=== PATIENT | male | born 1945 | race Caucasian/White ===

== ENCOUNTER 2022-05-28 08:25 | Outpatient (CLI) | payer OTHER, SELFPAY ==
--- NOTE | 2022-05-28 | PETR_ITS ---
PROCEDURE INFORMATION: Exam: PET/CT Skull Base to Mid-thigh Exam date and time: 05/28/2022 9:29 AM Age: 76 years old Clinical indication: Abnormal findings; Abnormal CT scan of lung field LABS AND CLINICAL REPORTS: Glucose: 93 mg/dl Treatment strategy for malignancy (PET staging): Initial Staging (PI) TECHNIQUE: Imaging protocol: Following at least four-hour fasting and following the injection of F-18-FDG, low dose CT images were obtained. Then, PET images were obtained. Attenuation corrected images were constructed using the CT scan. Fused images of PET and CT were reviewed. The standardized uptake values (SUV) reported below are maximum values within a region of interest, expressed in gm/ml. Exam includes orbital meatal line to mid-thigh. Radiopharmaceutical: 14.8 mCi F-18 FDG (Fluorodeoxyglucose), IV. Time of imaging post radiopharmaceutical administration: 57.9 minutes. Injection site: Left hand. COMPARISON: The images and the report of the CT chest which demonstrated the pulmonary abnormality have not been provided. They have been requested. FINDINGS: Brain: Visualized brain has normal physiologic uptake. Pharynx: No abnormal uptake. Larynx: No abnormal uptake. Lungs, pleura and trachea: In the right lower lobe, superior segment, a noncalcified irregular pulmonary nodule is approximately 2.0 x 1.0 x 1.0 cm (series 3, images 56-58). Its SUV max is only 1.7, which is not suspicious for malignancy. At the medial left lung apex, a 0.5 x 0.5 cm noncalcified pulmonary nodule is indeterminate because it is too small to be detectable on PET. Heart: Normal physiologic uptake. Mediastinal space: No abnormal uptake. Liver: No abnormal uptake. Gallbladder and bile ducts: No abnormal uptake. Pancreas: No abnormal uptake. Spleen: No abnormal uptake. Adrenal glands: No abnormal uptake. Kidneys and ureters: Normal physiologic uptake. Stomach and bowel: No abnormal uptake. Vasculature: There is mild calcific atherosclerosis of the abdominal aorta and iliac arteries. There is no aneurysm. Lymph nodes: No abnormal uptake. No lymphadenopathy in the head, neck, chest, abdomen, pelvis or extremities. Bones/joints: No metabolically active areas. Soft tissues: Small bilateral fat containing inguinal hernias, right larger than left. PET/PET skulltothi INITIAL [id number] IMPRESSION: 1. No evidence of FDG avid malignant neoplasm. 2. In the right lower lobe, superior segment, a 2.0 cm pulmonary nodule has an SUV max of 1.7, which is not suspicious for malignancy.
== END 2022-05-28 08:26 | disposition home or self-care (01) ==
LOC: RAD 05-30 08:25
PROVIDERS: PCP Family Medicine; Visit Provider Family Medicine
DX: R91.1 Solitary pulmonary nodule (principal)
CPT/HCPCS: 78815; A9552